=== PATIENT | male | born 1990 ===

== ENCOUNTER 2018-08-29 23:00 | Emergency (ER) | payer SELFPAY ==
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
[2018-08-29] MEDS ORDERED: Tdap Vaccine 0.5 ml Vial (10-64 yrs) IM ONE (23:40)
[2018-08-30] MEDS ORDERED: Tdap Vaccine 0.5 ml Vial (10-64 yrs) IM ONE (00:14)
[2018-08-30 00:37] LABS: GRANULAR CAST 5 /lpf (0-1); URINE BILIRUBIN NEGATIVE (NEGATIVE); URINE BLOOD NEGATIVE (NEGATIVE); URINE CLARITY Clear (Clear); URINE COLOR Yellow (YELLOW); URINE GLUCOSE (UA) NORMAL (Normal); URINE LEUKOCYTE ESTERASE NEG Leu/uL (Negative); URINE PROTEIN 1+ mg/dL (NEGATIVE); URINE UROBILINOGEN NORMAL mg/dL (0.2-1.0)
[2018-08-30 00:51] VITALS: BP 139/82; PULSE 89; RESP 20; TEMP 98.1; O2SAT 97
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
== END 2018-08-30 00:51 | disposition home or self-care (01) ==
LOC: C.ER 23:00
DX: S09.90XA Unspecified injury of head, initial encounter (principal); S80.212A Abrasion, left knee, initial encounter; S80.211A Abrasion, right knee, initial encounter; Y04.0XXA Assault by unarmed brawl or fight, initial encounter; Z23 Encounter for immunization